=== PATIENT | male | born 2005 | race Caucasian/White ===

== ENCOUNTER 2024-01-05 14:06 | Emergency (ER) | payer OTHER ==
[2024-01-05 14:19] VITALS: BMI 35.9
[2024-01-05] MEDS: LACTATED RINGERS SOLUTION 1000 ML INFUS.BAG IV ONE (15:20)
[2024-01-05 15:29] LABS: BASO % 0.8 % (0-2.0); EOS % 0.5 % (0-4.5); HEMOGLOBIN 14.7 GM/dL (11.7-16.9); LYMPH % 30.4 % (8-40); MCH 29.3 pg (25.7-33.7); MCHC 33.4 g/dl (32.0-35.9); MEAN CELL VOLUME 87.9 fl (80-96); MEAN PLT VOLUME 8.4 fl (7.5-11.1); MONO % 7.2 % (3.8-10.2); NEUT % 61.1 % (42.8-82.8); PLATELET COUNT 290 10^3/uL (134-434); RBC 5.01 M/mm3 (4.00-5.60); RDW 14.4 % (11.9-15.9); WHITE BLOOD COUNT 8.5 K/mm3 (4.0-10.0)
[2024-01-05 15:53] LABS: POTASSIUM 4.1 mmol/L (3.5-5.1)
[2024-01-05 15:56] LABS: ALBUMIN 4.6 g/dl (3.4-5.0); BLOOD UREA NITROGEN 13.7 mg/dL (7-18)
[2024-01-05 16:00] LABS: BILIRUBIN,TOTAL 0.6 mg/dL (0.2-1); TOT PROT 8.2 g/dl (6.4-8.2)
[2024-01-05 17:05] VITALS: TEMP 98.6
[2024-01-05 17:34] VITALS: BP 122/78; PULSE 79; RESP 19
== END 2024-01-05 17:34 | disposition home or self-care (01) ==
LOC: JER 14:06
DX: R07.89 Other chest pain (principal); R55 Syncope and collapse; R20.2 Paresthesia of skin; Z20.822 Contact with and (suspected) exposure to COVID-19
CPT/HCPCS: 0241U-QW; 36415; 80053; 84484; 85025; 93005; 93010; 99284-25